=== PATIENT | male | born 1990 | race Caucasian/White ===

== ENCOUNTER 2017-02-15 22:55 | Emergency (ER) | payer OTHER ==
[~2017-02-15] VITALS: Ht 177.8 cm; Wt 80.3 kg
[~2017-02-15 22:55] MED LIST: AMPH15CA7 PO; [UNRECOGNIZED DRUG - OTHER] PO
[2017-02-15 23:00] VITALS: TEMP 36.9; Ht 177.8 cm; Wt 80.3 kg
[2017-02-15] MEDS ORDERED: LIDO/EPINEPHRINE/SOD BICARB 20 ML VIAL INFIL ONE (23:16)
--- NOTE | 2017-02-15 23:16 | EMERGENCY ROOM VISIT NOTE ---
History Report prepared by [place]: Aggie Rodriguez Under the Supervision of: Dr. Abby Gibson D.O. First contact with patient: 23:05 Chief Complaint: FOREIGNBODY ANY BODY PART Stated Complaint: FISHING HOOK STUCK IN BETWEEN 4TH/5TH DIGITS, LEFT History of Present Illness The patient is a 26 year old male who presents to the Emergency Room with complaints of constant pain from a fishing hook between his 4th and 5th digits of the left hand. The patient states that he was out fishing and the hook got lodged in his left hand. He did try to remove the hook for about 90 minutes. He states that he tried pushing, pulling, rotating and cutting out the hook. The patient denies any other symptoms at this time. He is right-handed. Source of History: patient Position: finger(s) (4th and 5th digit of left hand) Quality: other (fishing hook between digits) Timing: constant Note: The patient denies any other symptoms at this time. Review of Systems See HPI for pertinent positives & negatives. A total of 10 systems reviewed and were otherwise negative. Past Medical & Surgical Surgical Problems: (1) S/P appendectomy Family History Patient reports no known family medical history. Social History Smoking Status: Light Tobacco Smoker Alcohol Use: occasionally Marital Status: single Housing Status: lives alone Occupation Status: employed Current/Historical Medications Scheduled Amphetamine-Dextroamphetamine 15MG (Adderall Xr 15MG), 15 MG PO DAILY [Vegetable Manuel], 1 CAP PO DAILY Allergies Coded Allergies: No Known Allergies (Unverified , 02/15/17) Physical Exam Vital Signs Date Time Temp Pulse Resp B/P (MAP) Pulse Ox O2 Delivery O2 Flow Rate FiO2 02/15/17 23:48 93 18 120/74 96 02/15/17 23:00 36.9 91 20 147/84 97 Room Air Physical Exam Extremities: Left hand fishing hook in web space between 4th and 5th digits. There is some mild surrounding edema. The tip of the fourth digit has good capillary refill and the patient has good sensation Medical Decision & Procedures Procedure ED Course 2305: Past medical records reviewed. The patient was evaluated in room A12. A complete history and physical exam was performed. 1130: Left hand fishing hook in web space between 4th and 5th digits: The hand was cleansed with Betadine and draped with sterile dressings. I injected the webspace with 2 mL of buffered lidocaine. I used a pair of hemostats to hold the fishing [place] and was able to remove it with slight pressure. I irrigated the wound with normal saline. I applied antibiotic ointment and wrapped with sterile dressing. Medical Decision This is a 26-year-old male patient with a fishing hook in his left hand. There was very tiny and he was unable to remove it on his own. I was able to remove them without much effort using a pair of Hemostats. He was encouraged to watch the wound for signs of infection since this had been in a fish. Medication Reconcilliation Current Medication List: was personally reviewed by me Blood Pressure Screening Patient's blood pressure: Elevated blood pressure Blood pressure disposition: Elevated BP felt to be situational, Did not require urgent referral Impression Primary Impression: Fishing hook foreign body Scribe Attestation The scribe's documentation has been prepared under my direction and personally reviewed by me in its entirety. I confirm that the note above accurately reflects all work, treatment, procedures, and medical decision making performed by me. Departure Information Dispostion Home / Self-Care Referrals No Doctor, Assigned (PCP) Forms HOME CARE DOCUMENTATION FORM, IMPORTANT VISIT INFORMATION, WORK / SCHOOL INSTRUCTIONS Patient Instructions My [facility] Additional Instructions Watch the hand for signs of infection Keep clean with soap and water. Problem Qualifiers Primary Impression: Fishing hook foreign body Encounter type: initial encounter Qualified Codes: W45.8XXA - Other foreign body or object entering through skin, initial encounter
[2017-02-15] MEDS ORDERED: XYLOCAINE 1%/SOD BICARB 20 ML VIAL INFIL ONE (23:23)
[2017-02-15 23:48] VITALS: BP 120/74; PULSE 93; O2SAT 96
== END 2017-02-15 23:49 | disposition home or self-care (01) ==
LOC: C.EDB 22:57 → C.EDA 23:49
DX: S60.552A Superficial foreign body of left hand, initial encounter (principal); W45.8XXA Other foreign body or object entering through skin, initial encounter; Y93.89 Activity, other specified; F17.210 Nicotine dependence, cigarettes, uncomplicated; Z79.899 Other long term (current) drug therapy